=== PATIENT | male | born 1995 | race Caucasian/White ===

== ENCOUNTER 2018-08-07 11:48 | Emergency (ER) | payer SELFPAY ==
--- NOTE | 2018-08-07 13:47 | RAD REPORT ---
EXAM DESCRIPTION: Latricia Single View08/07/2018 1:21 pm CLINICAL HISTORY: Chest pain COMPARISON: none FINDINGS: The lungs appear clear of acute infiltrate. The heart is normal size IMPRESSION: No acute abnormalities displayed
[2018-08-07] MEDS ORDERED: NA CHLORIDE 0.9% 1,000 ML ONE (14:22)
[2018-08-07 14:25] LABS: Absolute Monocytes 0.4 K/uL (0.1-1.3); Absolute Neutrophil 7.1 K/uL (1.8-8.0); Basophils % 0.9 % (0-1.3); Hematocrit 45.4 % (39.6-49.0); Lymphocytes % 20.8 % (15.3-44.8); MPV 8.6 fL (7.6-11.3); Monocytes % 3.7 % (3.3-12.3); RBC Red Blood Cell Count 5.02 M/uL (4.33-5.43)
[2018-08-07 14:25] LABS: Barbiturates NEGATIVE (NEGATIVE); Benzodiazepines NEGATIVE (NEGATIVE); Cocaine NEGATIVE (NEGATIVE); METHAMPHETAM NEGATIVE (NEGATIVE); Methadone NEGATIVE (NEGATIVE); Opiates NEGATIVE (NEGATIVE); Phencyclidine NEGATIVE (NEGATIVE); THC Cannibis NEGATIVE (NEGATIVE)
[2018-08-07 14:39] LABS: ALT/SGPT 17 U/L (12-78); AST/SGOT 13 U/L (15-37); Albumin 4.5 g/dL (3.4-5.0); Alkaline Phosphatase 79 U/L (45-117); BUN Blood Urea Nitrogen 10 mg/dL (7-18); Bicarbonate 27 mmol/L (21-32); Bilirubin Direct < 0.1 mg/dL (0-0.2); Bilirubin Total 0.3 mg/dL (0.2-1.0); Glucose Level 79 mg/dL (74-106); Lipase 475 U/L (73-393); Magnesium 2.5 mg/dL (1.8-2.4); NT PRO-BNP 43 pg/mL (<125); Potassium 3.9 mmol/L (3.5-5.1); Protein, Total 7.7 g/dL (6.4-8.2); Sodium Level 142 mmol/L (136-145); Troponin (Emerg Dept Use Only) < 0.02 ng/mL (0.0-0.045)
[2018-08-07 14:56] LABS: Urine Blood NEGATIVE (NEG); Urine Glucose NEGATIVE (NEG); Urine Protein NEGATIVE (NEG); Urine Specific Gravity 1.015 (1.005-1.030); Urine pH 7.5 (5.0-7.0)
--- NOTE | 2018-08-07 15:04 | EDPHYS ---
Physician Documentation [facility] Name: Rj Alas Age: 23 yrs Sex: Male : 1995 Arrival Date: 08/07/2018 Time: 11:50 Bed 15 Private MD: ED Physician Oli Urrutia HPI: 08/07 13:08 This 23 yrs old Male presents to ER via EMS with complaints of Chest Pain. seth 13:08 The patient or guardian reports chest pain that is located primarily in the anterior seth chest wall, bilaterally. The pain does not radiate. Associated signs and symptoms: Pertinent positives: shortness of breath. The chest pain is described as sharp. Modifying factors: The symptoms are alleviated by remaining still, the symptoms are aggravated by deep breath. Severity of pain: At its worst the pain was mild in the emergency department the pain has improved moderately. The patient has experienced similar episodes in the past, a few times. Historical: - Allergies: 11:53 No Known Allergies; em - Home Meds: 11:53 None [Active]; em - PMHx: 11:53 Schizophrenia; Bipolar disorder; Depression; em - PSHx: 11:53 None; em - Immunization history:: Adult Immunizations not immunized. - Social history:: Smoking status: Patient uses tobacco products, smokes one pack cigarettes per day. - Ebola Screening: : Patient negative for fever greater than or equal to 101.5 degrees Fahrenheit, and additional compatible Ebola Virus Disease symptoms Patient denies exposure to infectious person Patient denies travel to an Ebola-affected area in the 21 days before illness onset No symptoms or risks identified at this time. - Family history:: not pertinent. ROS: 13:08 Constitutional: Negative for fever, chills, and weight loss, Eyes: Negative for injury, seth pain, redness, and discharge, ENT: Negative for injury, pain, and discharge, Neck: Negative for injury, pain, and swelling, Abdomen/GI: Negative for abdominal pain, nausea, vomiting, diarrhea, and constipation, Back: Negative for injury and pain, : Negative for injury, bleeding, discharge, and swelling, MS/Extremity: Negative for injury and deformity, Skin: Negative for injury, rash, and discoloration, Neuro: Negative for headache, weakness, numbness, tingling, and seizure, Psych: Negative for depression, anxiety, suicide ideation, homicidal ideation, and hallucinations, Allergy/Immunology: Negative for hives, rash, and allergies, Endocrine: Negative for neck swelling, polydipsia, polyuria, polyphagia, and marked weight changes, Hematologic/Lymphatic: Negative for swollen nodes, abnormal bleeding, and unusual bruising. 13:08 Cardiovascular: Positive for chest pain. 13:08 Respiratory: Positive for shortness of breath. Exam: 13:08 Constitutional: This is a well developed, well nourished patient who is awake, alert, seth and in no acute distress. Head/Face: Normocephalic, atraumatic. Eyes: Pupils equal round and reactive to light, extra-ocular motions intact. Lids and lashes normal. Conjunctiva and sclera are non-icteric and not injected. Cornea within normal limits. Periorbital areas with no swelling, redness, or edema. ENT: Nares patent. No nasal discharge, no septal abnormalities noted. Tympanic membranes are normal and external auditory canals are clear. Oropharynx with no redness, swelling, or masses, exudates, or evidence of obstruction, uvula midline. Mucous membranes moist. Neck: Trachea midline, no thyromegaly or masses palpated, and no cervical lymphadenopathy. Supple, full range of motion without nuchal rigidity, or vertebral point tenderness. No Meningismus. Chest/axilla: Normal chest wall appearance and motion. Nontender with no deformity. No lesions are appreciated. Cardiovascular: Regular rate and rhythm with a normal S1 and S2. No gallops, murmurs, or rubs. Normal PMI, no JVD. No pulse deficits. Respiratory: Lungs have equal breath sounds bilaterally, clear to auscultation and percussion. No rales, rhonchi or wheezes noted. No increased work of breathing, no retractions or nasal flaring. Abdomen/GI: Soft, non-tender, with normal bowel sounds. No distension or tympany. No guarding or rebound. No evidence of tenderness throughout. Back: No spinal tenderness. No costovertebral tenderness. Full range of motion. Male : Normal genitalia with no discharge or lesions. Skin: Warm, dry with normal turgor. Normal color with no rashes, no lesions, and no evidence of cellulitis. MS/ Extremity: Pulses equal, no cyanosis. Neurovascular intact. Full, normal range of motion. Neuro: Awake and alert, GCS 15, oriented to person, place, time, and situation. Cranial nerves II-XII grossly intact. Motor strength 5/5 in all extremities. Sensory grossly intact. Cerebellar exam normal. Normal gait. Psych: Awake, alert, with orientation to person, place and time. Behavior, mood, and affect are within normal limits. 13:10 Musculoskeletal/extremity: DVT Exam: No signs of deep vein thrombosis. no pain, no seth swelling, no tenderness, negative Homans' sign noted on exam, no appreciated bluish discoloration, no erythema, no increased warmth. 14:54 Musculoskeletal/extremity: Extremities: all appear grossly normal, with no appreciated seth pain with palpation, ROM: no acute changes, Circulation is intact in all extremities. Sensation intact. Compartment Syndrome exam of affected extremity: is normal. Vital Signs: 11:53 BP 133 / 86; Pulse 82; Resp 18; Pulse Ox 100% on R/A; Weight 79.38 kg; Height 6 ft. 1 em in. (185.42 cm); Pain 5/10; 12:30 BP 115 / 72; Pulse 82; Resp 16 S; Pulse Ox 100% on R/A; Pain 0/10; jl7 14:30 BP 120 / 75; Pulse 80; Resp 16 S; Pulse Ox 100% on R/A; jl7 11:53 Body Mass Index 23.09 (79.38 kg, 185.42 cm) em MDM: 11:57 Patient medically screened. seth 13:10 Data reviewed: vital signs, nurses notes, EKG, radiologic studies. [facility] 08/07 12:57 Order name: Basic Metabolic Panel; Complete Time: 14:51 [facility] 08/07 12:57 Order name: CBC with Diff 08/07 12:57 Order name: LFT's; Complete Time: 14:51 [facility] 08/07 12:57 Order name: Magnesium; Complete Time: 14:51 [facility] 08/07 12:57 Order name: NT PRO-BNP; Complete Time: 14:51 [facility] 08/07 12:57 Order name: Troponin (emerg Dept Use Only); Complete Time: 14:51 [facility] 08/07 12:57 Order name: XRAY Chest (1 view); Complete Time: 14:14 [facility] 08/07 12:57 Order name: Lipase; Complete Time: 14:51 [facility] 08/07 12:57 Order name: UDS; Complete Time: 14:28 [facility] 08/07 13:08 Order name: D-Dimer [facility] 08/07 14:28 Order name: CBC Smear Scan EDID 08/07 14:46 Order name: Urine Dipstick--Ancillary (enter results) ag 08/07 12:57 Order name: EKG; Complete Time: 12:58 [facility] 08/07 12:57 Order name: Cardiac monitoring; Complete Time: 14:19 [facility] 08/07 12:57 Order name: EKG - Nurse/Tech; Complete Time: 14:18 [facility] 08/07 12:57 Order name: IV Saline Lock; Complete Time: 14:18 [facility] 08/07 12:57 Order name: Labs collected and sent; Complete Time: 14:18 [facility] 08/07 12:57 Order name: O2 Per Protocol; Complete Time: 14:18 [facility] 08/07 12:57 Order name: O2 Sat Monitoring; Complete Time: 14:18 [facility] Administered Medications: 13:08 CANCELLED (Duplicate Order): Aspirin 162 mg PO once [facility] 14:18 Drug: NS 0.9% 1000 ml Route: IV; Rate: 125 ml/hr; Site: left hand; jl7 15:30 Follow up: IV Status: Completed infusion jl7 Disposition: 08/07/18 15:03 Discharged to Home. Impression: Chest pain, unspecified, Tobacco abuse counseling, Tobacco use, Abuse of non-psychoactive substances. - Condition is Stable. - Discharge Instructions: Nonspecific Chest Pain, Steps to Quit Smoking, Smoking Hazards, Chest Wall Pain, [id number], Nonspecific Chest Pain, [id number]. - Medication Reconciliation Form, Thank You Letter, Antibiotic Education, Prescription Opioid Use form. - Follow up: Private Physician; When: 2 - 3 days; Reason: Recheck today's complaints, Continuance of care, Re-evaluation by your physician. - Problem is new. - Symptoms have improved. Signatures: Dispatcher [employer] Oli Bui MD MD cha Munoz, Edgar, CONTRACT ATTORNEY CONTRACT ATTORNEY Pastora Agudelo, RN RN jl7 Corrections: (The following items were deleted from the chart) 13:08 12:57 Aspirin 162 mg PO once ordered. [facility] 15:32 15:03 08/07/2018 15:03 Discharged to Home. Impression: Chest pain, unspecified; Tobacco jl7 abuse counseling; Tobacco use; Abuse of non-psychoactive substances. Condition is Stable. Discharge Instructions: Nonspecific Chest Pain, Steps to Quit Smoking, Smoking Hazards, Chest Wall Pain, Xpwm-[id number], Nonspecific Chest Pain, Qpin-tf-[id number]. Forms are Medication Reconciliation Form, Thank You Letter, Antibiotic Education, Prescription Opioid Use. Follow up: Private Physician; When: 2 - 3 days; Reason: Recheck today's complaints, Continuance of care, Re-evaluation by your physician. Problem is new. Symptoms have improved. seth
--- NOTE | 2018-08-07 15:04 | ER ---
Nurse's Notes [facility] Name: Rj Alas Age: 23 yrs Sex: Male : 1995 Arrival Date: 08/07/2018 Time: 11:50 Bed 15 Private MD: Diagnosis: Chest pain, unspecified;Tobacco abuse counseling;Tobacco use;Abuse of non-psychoactive substances Presentation: 08/07 11:51 Presenting complaint: EMS states: c/o of chest pain and SOB while in custody, pt admits em to smoking synthetic marijuana, pt reports nausea, denies vomiting, [employer] at bedside. Transition of care: patient was not received from another setting of care. Onset of symptoms was August 07, 2018. Risk Assessment: Do you want to hurt yourself or someone else? Patient reports no desire to harm self or others. Initial Sepsis Screen: Does the patient meet any 2 criteria? No. Patient's initial sepsis screen is negative. Does the patient have a suspected source of infection? No. Patient's initial sepsis screen is negative. Care prior to arrival: None. 11:51 Method Of Arrival: EMS: [facility] em 12:14 Acuity: SHAYAN 3 jl7 Triage Assessment: 11:53 General: Appears in no apparent distress. comfortable, Behavior is calm, cooperative. em Pain: Complains of pain in chest. Cardiovascular: Reports chest pain, nausea, shortness of breath, Patient's skin is warm and dry. Historical: - Allergies: 11:53 No Known Allergies; em - Home Meds: 11:53 None [Active]; em - PMHx: 11:53 Schizophrenia; Bipolar disorder; Depression; em - PSHx: 11:53 None; em - Immunization history:: Adult Immunizations not immunized. - Social history:: Smoking status: Patient uses tobacco products, smokes one pack cigarettes per day. - Ebola Screening: : Patient negative for fever greater than or equal to 101.5 degrees Fahrenheit, and additional compatible Ebola Virus Disease symptoms Patient denies exposure to infectious person Patient denies travel to an Ebola-affected area in the 21 days before illness onset No symptoms or risks identified at this time. - Family history:: not pertinent. Screenin:54 Abuse screen: Denies threats or abuse. Nutritional screening: No deficits noted. em Tuberculosis screening: No symptoms or risk factors identified. Fall Risk None identified. Assessment: 12:20 General: Appears in no apparent distress. uncomfortable, Behavior is calm, cooperative. jl7 Pain: Denies pain. Complains of pain in chest Pain does not radiate. Pain currently is 0 out of 10 on a pain scale. at worst was 5 out of 10 on a pain scale. Quality of pain is described as pressure, squeezing, Pain began 2 hours ago. Is intermittent. Neuro: Level of Consciousness is awake, alert, obeys commands, Oriented to person, place, time, situation. Cardiovascular: Heart tones S1 S2 present Patient's skin is warm and dry. Respiratory: Airway is patent Respiratory effort is even, unlabored, Respiratory pattern is regular, symmetrical. GI: No signs and/or symptoms were reported involving the gastrointestinal system. : No signs and/or symptoms were reported regarding the genitourinary system. EENT: No signs and/or symptoms were reported regarding the EENT system. Derm: Skin is pink, warm \T\ dry. Musculoskeletal: No signs and/or symptoms reported regarding the musculoskeletal system. 13:30 Reassessment: Patient appears in no apparent distress at this time. No changes from jl7 previously documented assessment. Patient and/or family updated on plan of care and expected duration. Pain level reassessed. Patient is alert, oriented x 3, equal unlabored respirations, skin warm/dry/pink. 14:30 Reassessment: Patient appears in no apparent distress at this time. Patient and/or jl7 family updated on plan of care and expected duration. Pain level reassessed. Patient is alert, oriented x 3, equal unlabored respirations, skin warm/dry/pink. Vital Signs: 11:53 BP 133 / 86; Pulse 82; Resp 18; Pulse Ox 100% on R/A; Weight 79.38 kg; Height 6 ft. 1 em in. (185.42 cm); Pain 5/10; 12:30 BP 115 / 72; Pulse 82; Resp 16 S; Pulse Ox 100% on R/A; Pain 0/10; jl7 14:30 BP 120 / 75; Pulse 80; Resp 16 S; Pulse Ox 100% on R/A; jl7 11:53 Body Mass Index 23.09 (79.38 kg, 185.42 cm) em ED Course: 11:50 Patient arrived in ED. em 11:53 Arm band placed on. em 11:54 Patient has correct armband on for positive identification. Placed in gown. Bed in low em position. Call light in reach. [employer] at bedside. Pulse ox on. NIBP on. 11:54 Patient maintains SpO2 saturation greater than 95% on room air. em 11:57 Oli Urrutia MD is Attending Physician. [facility] 12:13 Pastora Zuniga, RN is Primary Nurse. jl7 12:14 Triage completed. jl7 13:17 X-ray completed. Portable x-ray completed in exam room. Patient tolerated procedure sg4 well. 13:19 XRAY Chest (1 view) In Process Unspecified. EDMN 14:00 Initial lab(s) drawn, by me, sent to lab. Urine collected: clean catch specimen, clear. jl7 Inserted saline lock: 22 gauge in left hand, using aseptic technique. Blood collected. 15:31 No provider procedures requiring assistance completed. IV discontinued, intact, jl7 bleeding controlled, No redness/swelling at site. Pressure dressing applied. Administered Medications: 13:08 CANCELLED (Duplicate Order): Aspirin 162 mg PO once [facility] 14:18 Drug: NS 0.9% 1000 ml Route: IV; Rate: 125 ml/hr; Site: left hand; jl7 15:30 Follow up: IV Status: Completed infusion jl7 Outcome: 15:03 Discharge ordered by . [facility] 15:31 Discharged to home ambulatory. jl7 15:31 Condition: stable 15:31 Discharge instructions given to patient, police, Instructed on discharge instructions, follow up and referral plans. Demonstrated understanding of instructions, follow-up care. 15:32 Patient left the ED. jl7 Signatures: Dispatcher [employer] EDMN Oli Urrutia MD MD cha Munoz, Edgar, NECK BAND OPERATOR NECK BAND OPERATOR em Pastora Zuniga, RN RN Radha Mckeon sg4 Corrections: (The following items were deleted from the chart) 11:57 11:51 Presenting complaint: EMS states: c/o of chest pain and SOB while in custody, pt em reports nausea, denies vomiting, [employer] at bedside em 15:31 14:30 No provider procedures requiring assistance completed. jl7 jl7 15:31 14:30 IV discontinued, intact, bleeding controlled, No redness/swelling at site. jl7 Pressure dressing applied, jl7
[2018-08-07 15:20] LABS: Blood Morphology Comment NOT SEEN (NOT SEEN); Platelet Estimate ADEQ; Urine White Blood Cell Casts OK
--- NOTE | 2018-08-08 13:32 | EKG ---
Test Date: 2018-08-07 Test Time: 13:40:28 Chief Cloth Finishing Range Operator: DAVID MEASUREMENT RESULTS: Intervals: Rate: 73 NJ: 150 QRSD: 102 QT: 350 QTc: 385 B[place]um: P: 62 NJ: 150 QRS: 91 T: 65 INTERPRETIVE STATEMENTS: Normal sinus rhythm Rightward axis Borderline ECG No previous ECG available for comparison Electronically Signed On 08-08-18 13:22:03 LINING CUTTER by Tariq Denis
== END 2018-08-07 15:32 | disposition home or self-care (01) ==
LOC: ER 11:48
DX: F55.8 Abuse of other non-psychoactive substances (principal); Z72.0 Tobacco use; Z71.6 Tobacco abuse counseling
CPT/HCPCS: 36415; 71045; 80048; 80076; 80307; 81003; 83690; 83735; 83880; 84484; 85025; 85379; 93005; 96360; 99284; J7030